=== PATIENT | female | born 1990 | race American Indian/Alaskan Native ===

== ENCOUNTER 2016-12-21 09:05 | Emergency (ER) | payer MEDICAID, OTHER ==
[2016-12-21] MEDS ORDERED: NORCO 5/325 PO ONE (10:59)
[2016-12-21] MEDS ORDERED: FLEXERIL PO ONE (10:59)
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
--- NOTE | 2016-12-21 13:44 | Cat Scan Report ---
CT THORACIC SPINE WITHOUT CONTRAST CT LUMBAR SPINE WITHOUT CONTRAST HISTORY: Back pain. TECHNIQUE: Contiguous 1.25 mm axial images of were obtained. Sagittal and coronal reformatted images. FINDINGS: Thoracolumbar spine films performed earlier today were again reviewed. There is normal height and alignment and thoracic and lumbar vertebral bodies. No compression deformity, bone lesion or subluxation is identified. The abnormality at T11 appears to represent a small Schmorl's node. No significant degenerative changes. The posterior elements are intact. No paraspinal hematoma is appreciated. IMPRESSION: Thoracic and lumbar spine within normal limits. No acute injury is detected on CT.
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
[2016-12-21 15:23] VITALS: BP 109/62
== END 2016-12-21 15:21 | disposition home or self-care (01) ==
LOC: ED 09:05
DX: M25.512 Pain in left shoulder (principal); Z88.5 Allergy status to narcotic agent; M54.9 Dorsalgia, unspecified; D57.1 Sickle-cell disease without crisis; V89.2XXA Person injured in unspecified motor-vehicle accident, traffic, initial encounter; Y92.488 Other paved roadways as the place of occurrence of the external cause; Y93.89 Activity, other specified; Y99.8 Other external cause status
CPT/HCPCS: 72080; 72128; 72131